=== PATIENT | male | born 1955 | race Caucasian/White ===

== ENCOUNTER 2019-09-05 08:34 | Day surgery (SDC) | payer BC ==
[2019-09-04 15:03] LABS: Absolute Lymphocytes (CBC) 3.3 K/uL (0.7-4.9); Basophils % 0.6 % (0-1.3); Hematocrit 44.6 % (39.6-49.0); Lymphocytes % 25.4 % (15.3-44.8); RBC Red Blood Cell Count 4.86 M/uL (4.33-5.43)
[2019-09-04 15:14] LABS: Potassium 4.6 mmol/L (3.5-5.1)
--- NOTE | 2019-09-04 15:30 | RAD REPORT ---
EXAM DESCRIPTION: RAD - Chest Pa And Lat (2 Views) - 09/04/2019 3:02 pm CLINICAL HISTORY: PRE OP FOR SURGERY Chest pain. COMPARISON: No comparisons FINDINGS: The lungs are mildly emphysematous. A tiny area of nodularity present left upper lobe. The heart is normal in size. No displaced fractures. IMPRESSION: Moderate COPD. Tiny area of nodularity in the left upper lobe is noted. This would benefit from follow-up CT imaging for further assessment.
--- NOTE | 2019-09-04 16:24 | EKG ---
Test Date: 2019-09-04 Test Time: 14:31:15 Shipping Inspector: DONALD MEASUREMENT RESULTS: Intervals: Rate: 67 [place]: 134 QRSD: 98 QT: 404 QTc: 426 [place]: P: 50 [place]: 134 QRS: 33 T: 55 INTERPRETIVE STATEMENTS: Normal sinus rhythm Normal ECG No previous ECG available for comparison Electronically Signed On 09-04-19 16:23:45 AIR SEALING TECHNICIAN by Garrick Chavez
[~2019-09-05 08:34] MED LIST: CEFAZOLIN/SWI 1gm 1 GM/10 ML SYR ONE; Ringers Lactate 1,000 ML IV ONE
--- OUTSIDE RECORDS SUMMARY | 2019-09-05 08:40 | XMS REPORT ---
:1955 [facility] Address [address] [place] [address] Dr. Ernandez [address] [place] [id number] Care Team Providers Name Role Phone Unavailable Unavailable Unavailable Problems This patient has no known problems. Allergies, Adverse Reactions, Alerts This patient has no known allergies or adverse reactions. Medications This patient has no known medications.
[2019-09-05] MEDS ORDERED: propofoL 200 MG/20 ML VIAL IV ONE (08:46)
[2019-09-05] MEDS ORDERED: FENTANYL CITR 100 MCG/2 ML ONE ×2 (08:46→09:41)
[2019-09-05] MEDS ORDERED: ONDANSETRON 4 MG/2 ML VIAL ONE (08:46)
[2019-09-05] MEDS ORDERED: LIDOCAINE 2% MPF 5 ML VIAL ONE (08:46)
[2019-09-05] MEDS ORDERED: MIDAZOLAM HCL 2 MG/2 ML INJ ONE (08:46)
[2019-09-05] MEDS: HYDROMORPHONE HCL 1 MG/ML INJ ONE ×6 (10:00→10:34)
[2019-09-05] MEDS ORDERED: MEPERIDINE HCL 25 MG/0.5 ML ONE ×2 (10:17→10:25)
[2019-09-05] MEDS ORDERED: HYDROCODONE/APAP 7.5/325 MG TAB ONE (11:24)
[2019-09-05 16:03] VITALS: BP 138/66; TEMP 97; O2SAT 95
--- NOTE | 2019-09-05 22:59 | OP ---
Date of Procedure: 09/05/2019 Surgeon: Angel Lane MD Preoperative Diagnosis: Perirectal abscess. Postoperative Diagnosis: Perirectal abscess. Procedure: Exam under anesthesia, rigid proctoscopy, incision and drainage and debridement of perire ctal abscess. Estimated Blood Loss: Minimal. Specimen: Pus. Findings: As above. Anesthesia: General. Complications: None. Disposition: Patient tolerated the procedure in stable condition and taken to Recovery in good gener al condition. Procedure In Detail: Patient was brought to the OR and placed in supine position. General anesthesi a was begun. Patient was placed in lithotomy position, prepped and draped in usual sterile fashion. Exam under anesthesia revealed an indurated mass in the left posterior midline perirectal region la nena roximately 3 x 4 cm. Rigid proctoscopy was performed. No evidence of internal opening that could be identified. Subsequently, Marcaine 0.5% was infiltrated locally. Then, 15 blade was used to make a pproximately a 3 cm incision on the left posterior aspect of the perirectal space. Subcutaneous tiss ue was divided and deep to that a large amount of pus encountered. Loculations were broken up. Necr otic tissue was debrided. Wound was irrigated and bleeding controlled with cautery. Wet-to-dry norm al saline dressing change was applied. Patient tolerated the procedure in stable condition, taken to Re covery in good general condition. /MODL Voice ID: [id number] Report ID: [id number]
--- NOTE | 2019-09-05 23:05 | DS ---
Date of Discharge: 09/05/2019 Patient will go to Day Surgery, then home when stable. Disposition: Home. Condition: Stable. Discharge Instructions: Resume home medications and diet. Activity as tolerated. No heavy lifting. Remove outer dressing in a.m., sitz baths. Wet-to-dry normal saline dressing changes daily. Tylen ol No. 3 one tablet p.o. q.4 p.r.n. pain, Cipro 500 mg p.o. q.12. Follow up in my office in 2 weeks. Call for appointment. VERONICA/YOLANDA Voice ID: [id number] Report ID: [id number]
== END 2019-09-05 12:00 | disposition home or self-care (01) ==
LOC: OR 08:34
PROVIDERS: ATTEND Surgery
PROC: 0D9P0ZX Drainage of Rectum, Open Approach, Diagnostic (ICD-10-PCS; principal; 2019-09-05 10:15)
DX: K61.1 Rectal abscess (principal)
CPT/HCPCS: 93005; 87070; 85025; 80048; 36415; 87205; 87075; 87077 ×2; 87186 ×2; 71046; 46040; J2704; J2250; J3010 ×2; J2175 ×2; J1170 ×3; J0690; J7120; J2405

== ENCOUNTER 2020-10-22 07:55 | Day surgery (SDC) | payer BC ==
--- OUTSIDE RECORDS SUMMARY | 2020-10-22 08:04 | XMS REPORT | Continuity of Care Document ---
:1955 Author Organization [facility] t Address [address] [place] [address] Care Team Providers Name Role Phone Tari SHEPPARD, L Attending Clinician Problems Condition Condition Condition Status Onset Resolution Last Treating Co mments Source Name Details Category Date Date Treatment Clinician Date Upper Upper Problem Active [place] respirator Respirator da y y Medical infection Infection Grou p Allergies, Adverse Reactions, Alerts This patient has no known allergies or adverse reactions. Social History Smoking Status Start Date Stop Date Source Heavy Tobacco Smoker [facility] Medications Ordered Filled Start Stop Current Ordering Indication Dosage Frequency Signature Comments Components Source Medication Medication Date Date Medication? Clinician (SIG) Name Name Medrol Medrol No 1dose Medrol [place] (Aston) 4 mg (Aston) 4 mg pk(s) (Aston) 4 mg da tablets in tablets in tablets in Medical a dose pack a dose pack a dose Group Take 1 dose Take 1 dose pack Take pk by oral pk by oral 1 dose pk route. route. by oral route. ProAir HFA ProAir HFA No 2puff(s Q4H ProAir HFA [place] 90 90 ) 90 da mcg/actuati mcg/actuati mcg/actuat Medical on aerosol on aerosol ion Agueda up inhaler inhaler aerosol Inhale 2 Inhale 2 inhaler puffs every puffs every Inhale 2 4 hours by 4 hours by puffs inhalation inhalation every 4 route. route. hours by inhalation route. 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) Group Body Weight 2020-06-26 00:00:00 3504 [oz_av] [facility] BP Diastolic 2020-06-02 00:00:00 72 mm[Hg] [facility] Height 2020-06-02 00:00:00 73 [in_i] [facility] BMI (Body Mass 2020-06-02 00:00:00 28.9 kg/m2 [facility] 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 steward Medical Index) Group BP Systolic 2020-06-02 00:00:00 115 mm[Hg] [facility] Body Weight 2020-06-02 00:00:00 3500.8 [oz_av] [facility] Medical Group Procedures Procedure Date / Time Performed Performing Clinician [facility] e Leg Surgery Procedure [facility] Shoulder Joint Surgery [facility] Plan of Care Planned Activity Planned Date Details Comments Source Diagnostic Test 2020-06-26 COVID-19 RNA [facility] P[facility] 00:00:00 (SARS-CoV-2), QL, 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 2020-06-02 2020-06-02 Jerica [facility] [place] - [id number] M atagor 00:00:00 00:00:00 Gabby Ward, Medical Medical [employer] CUTTER: [address] [facility] [place] [address], [place] [address] , Ph. 2019-04-12 2020-03-13 Office Tari [facility] [phone] [id number] 08:21:23 08:32:26 Visit [facility] [id number] Surgical [id number] Specialti [phone] Results This patient has no known results.
[2020-10-22 08:34] LABS: Basophils % 0.6 % (0-1.3); Hematocrit 46.6 % (39.6-49.0); MPV 8.7 fL (7.6-11.3)
[2020-10-22] MEDS ORDERED: MIDAZOLAM HCL 2 MG/2 ML INJ ONE (08:39)
[2020-10-22] MEDS ORDERED: FENTANYL CITR 100 MCG/2 ML ONE (08:39)
[2020-10-22] MEDS ORDERED: ONDANSETRON 4 MG/2 ML VIAL ONE (08:40)
[2020-10-22] MEDS ORDERED: LIDOCAINE 1% MPF 30 ML VIAL ONE (08:40)
[2020-10-22] MEDS ORDERED: dexAMETHasone 10 MG/ML VIAL ONE (08:40)
[2020-10-22] MEDS ORDERED: propofoL 200 MG/20 ML VIAL IV ONE (08:40)
[2020-10-22] MEDS ORDERED: KETOROLAC 30 MG/ML INJ ONE (08:40)
[2020-10-22 08:44] LABS: Potassium 4.6 mmol/L (3.5-5.1)
[2020-10-22] MEDS ORDERED: CEFOXITIN/SWI 1gm 1 GM/10 ML SYR ONE (08:59)
[2020-10-22] MEDS ORDERED: Ringers Lactate 1,000 ML IV ONE (08:59)
[2020-10-22] MEDS ORDERED: KETAMINE HCL 500 MG/5 ML VIAL ONE (09:28)
[2020-10-22] MEDS ORDERED: NS 0.9% VIAL 10 ML ONE (09:43)
[2020-10-22] MEDS ORDERED: Phenylephrine HCl 10 MG/ML 1 ML VIAL ONE (09:43)
[2020-10-22] MEDS ORDERED: EPHEDRINE SULF 50 MG/ML VIAL ONE (09:57)
[2020-10-22 11:17] VITALS: BP 134/77; TEMP 97; O2SAT 99
--- NOTE | 2020-10-22 11:18 | OP ---
Date of Procedure: 10/22/2020 Surgeon: Angel Lane MD Preoperative Diagnosis: Right perirectal abscess. Postoperative Diagnosis: Right perirectal abscess. Procedure: Exam under anesthesia, rigid proctoscopy, incision and drainage and debridement of the ri ght perirectal abscess. Estimated Blood Loss: Minimal. Specimen: Pus for culture and sensitivity. Findings: As above. Anesthesia: General. Complications: None. Disposition: The patient tolerated the procedure in stable condition, taken to Recovery in good gene ral condition. Procedure In Detail: The patient was brought to the OR and placed in supine position. General anest hesia begun. The patient placed in lithotomy position, prepped and draped in usual sterile fashion. Exam under anesthesia, proctoscopy revealed a mass in the right lateral aspect of the anorectal kalyani in, induration and central fluctuance, it was tender in the office. There was no open wound that was seen. So Marcaine 0.5% was infiltrated around that area and then 15 blade was used to make a 2 cm i ncision and pus under pressure was evacuated. Cultures were done. Wound irrigated. Bleeding contro lled with cautery and then wet-to-dry normal saline dressing change applied. The patient tolerated t he procedure in stable condition, taken to Recovery in good general condition. Discharge Note: The patient will go to Day Surgery and home when stable. Disposition: Home. Condition: Stable. Discharge Instructions: Resume home medications and diet. Activity as tolerated. No heavy lifting. Cipro, Flagyl, and [place] prescription given yesterday. Wet-to-dry normal saline dressing changes d aily and sitz baths prior dressing change. Follow up in my office in 2 weeks, call for appointment. VERONICA/YOLANDA Voice ID: [id number] Report ID: [id number]
[2020-10-22] MEDS ORDERED: HYDROCODONE/APAP 7.5/325 MG TAB ONE (11:37)
== END 2020-10-22 12:00 | disposition home or self-care (01) ==
LOC: OR 07:55
PROVIDERS: ATTEND Surgery
PROC: 0J9B0ZX Drainage of Perineum Subcutaneous Tissue and Fascia, Open Approach, Diagnostic (ICD-10-PCS; principal; 2020-10-22 09:00)
DX: K61.1 Rectal abscess (principal); K62.5 Hemorrhage of anus and rectum; Z20.822 Contact with and (suspected) exposure to COVID-19
CPT/HCPCS: 87070; 85025; 80048; 36415; 87205; 87185; 87075; 46040; U0002; J2704; J2370; J2250; J3010; J1100; J7120; J2405